=== PATIENT | female | born 1980 | race Caucasian/White ===

== ENCOUNTER 2017-07-19 14:36 | Emergency (ER) | payer OTHER ==
[2017-07-19 15:38] LABS: #Basophils 0.1 thou/uL (0.0-0.2); #Eosinphils 0.2 thou/uL (0.0-0.7); #Lymphocytes 2.1 thou/uL (1.20-3.40); #Monocytes 0.7 thou/uL (0.11-0.59); #Neutrophils 4.9 thou/uL (1.40-6.50); %Basophils 1.3 % (0.0-1.0); %Eosinophils 2.1 % (0.0-10.0); %Lymphocytes 26.2 % (21.0-51.0); %Monocytes 8.6 % (0.0-10.0); Hematocrit 42.3 % (36.0-47.0); Red Blood Cell (RBC) Count 4.95 mill/uL (4.20-5.40); White Blood Cell (WBC) Count 7.9 thou/uL (4.8-10.8)
[2017-07-19 15:49] LABS: Lactic Acid - Sepsis 1.6 mmol/L (0.5-2.2)
[2017-07-19 15:51] LABS: Anion Gap 13 mmol/L (10-20); BUN (Urea Nitrogen) 4 mg/dL (7.0-18.7); Calc. Creatinine Clearance 0 mL/min (70-130); Calcium 9.1 mg/dL (7.8-10.44); Carbon Dioxide 20 mmol/L (22-29); Chloride 111 mmol/L (98-107); Estimated GFR-MDRD Greater than 90
[2017-07-19 16:11] LABS: PTT 31.8 SEC (22.9-36.1); Prothrombin Time 13.6 SEC (12.0-14.7)
[2017-07-19 16:34] LABS: Bilirubin Negative (Negative); Blood, Urine Moderate (Negative); Glucose, Urine (Dipstick) Negative (Negative); Ketone, Urine Negative (Negative); Nitrite Negative (Negative); Protein, Urine (Dipstick) Negative (Neg-Trace); Urobilinogen 0.2 mg/dL (0.2-1.0)
[2017-07-19 16:41] LABS: Bacteria/HPF 3+ HPF (None Seen); RBC/HPF 0-3 HPF (0-3); Renal Epithelial 0-3 HPF (0-3)
[2017-07-19] MEDS ORDERED: Acetaminophen/Codeine 30-300mg Tablet ONE (17:23)
[2017-07-19] MEDS ORDERED: diphenhydrAMINE 25 MG CAP ONE (17:31)
[2017-07-19] MEDS ORDERED: Metoclopramide HCl 10 MG/2 ML VIAL ONE (18:03)
--- NOTE | 2017-07-19 18:24 | RAD ---
CHEST TWO VIEWS 07/19/17 HISTORY: Cough and fever. COMPARISON: 03/15/17 FINDINGS: The cardiac silhouette and pulmonary vasculature are unremarkable. Calcified granulomata are consiste nt with healed granulomatous disease. There is no confluent air space consolidation, pneumothorax or pleural fluid evident. IMPRESSION: No active cardiopulmonary abnormalities are demonstrated. POS: [facility]
--- NOTE | 2017-07-19 18:31 | RAD ---
LEFT LOWER LEG TWO VIEWS 07/19/17 HISTORY: Left leg pain. Prior fracture with internal fixation. FINDINGS: Internal fixation of the tibia consists of a long medullary ridge and multiple screws. Alignment is olena tomic. Distal tibial fracture planes remain lucent. Oblique fracture, comminuted, involving the distal fibul a is also apparent without significant callus formation or periosteal reaction. No perihardware lucen cy is visible. IMPRESSION: 1. No significant healing of the distal fibular fracture is evident. 2. Internal fixation of the tibia without evidence of hardware complication. POS: [facility]
--- NOTE | 2017-07-19 19:31 | CT ---
CT HEAD NONCONTRAST 07/19/17 HISTORY: Headache. COMPARISON: 01/24/16 emergency study. FINDINGS: There is no evidence of acute intracranial hemorrhage or infarct. The ventricles appear normal in siz e, shape and position. There is no mass effect or shift of midline structures. The visualized parana gerda sinuses remain well aerated. IMPRESSION: No acute intracranial abnormalities are demonstrated on noncontrast CT head. POS: [facility]
--- NOTE | 2017-07-19 19:34 | CT ---
CT CHEST NONCONTRAST 07/19/17 HISTORY: Fever and cough. FINDINGS: Lungs are well inflated. One tiny focus of atelectasis is present at the anterior right upper lobe. C alcified granulomata are consistent with healed granulomatous disease. No lobar consolidation, or pne umothorax are apparent. No pleural fluid. Lack of contrast limits evaluation of the mediastinum. No bulky adenopathy is apparent. IMPRESSION: No significant abnormalities are demonstrated. POS: [facility]
== END 2017-07-19 20:01 | disposition home or self-care (01) ==
LOC: SCSER 14:36
DX: J40 Bronchitis, not specified as acute or chronic (principal); N39.0 Urinary tract infection, site not specified; F17.210 Nicotine dependence, cigarettes, uncomplicated; F31.9 Bipolar disorder, unspecified; R50.9 Fever, unspecified; E11.9 Type 2 diabetes mellitus without complications; E78.5 Hyperlipidemia, unspecified; Z79.899 Other long term (current) drug therapy; Z71.6 Tobacco abuse counseling
CPT/HCPCS: 51701; 70450; 71020; 71250; 80048; 81003; 81015; 81025; 83605; 84703; 85025; 85610; 85730; 86140; 87077; 87086; 87186; 96361; 96365; 99406; J2765